=== PATIENT | male | born 1970 | race Two or more races ===

== ENCOUNTER 2020-09-30 13:04 | Emergency (ER) | payer OTHER ==
[~2020-09-30] VITALS: Ht 177.8 cm; Wt 81.6 kg
[2020-09-30] MEDS ORDERED: SYNTHROID75 MCG (13:25)
== END 2020-09-30 16:42 | disposition home or self-care (01) ==
LOC: ER 13:04
DX: S61.422A Laceration with foreign body of left hand, initial encounter (principal); W45.8XXA Other foreign body or object entering through skin, initial encounter; Y93.89 Activity, other specified; Y92.89 Other specified places as the place of occurrence of the external cause; Y99.8 Other external cause status